=== PATIENT | male | born 1980 | race Caucasian/White ===

== ENCOUNTER 2020-10-31 09:57 | Emergency (ER) | payer OTHER ==
[~2020-10-31] VITALS: Ht 177.8 cm; Wt 89.6 kg
--- NOTE | 2020-10-31 10:12 | NUR ---
PT RECLINED IN BED, NAD NOTED AT THIS TIME. PT PRESENTS WITH URTICARIA RASH FOR MONTHS. AWAITING ORDERS AT THIS TIME.
[2020-10-31] MEDS ORDERED: FAMOTIDINE 20 MG TABLET ONE (10:19)
[2020-10-31] MEDS ORDERED: FAMOTIDINE 20 MG TABLET PO ONE (10:30)
[2020-10-31 10:46] LABS: BASOPHILS % (AUTO) 0 % (0-1); EOSINOPHILS % (AUTO) 2 % (1-7); LYMPHOCYTES % (AUTO) 14 % (22-44); MEAN CORPUSCULAR HEMOGLOBIN 32.6 pg (27.5-34.5); MEAN CORPUSCULAR HGB CONC 33.8 g/dL (33.2-36.2); MONOCYTES % (AUTO) 9 % (2-9); NEUTROPHILS % (AUTO) 76 % (42-75); PLATELET COUNT 255 x10^3/uL (130-400); RED BLOOD COUNT 5.03 x10^6/uL (4.38-5.82); RED CELL DISTRIBUTION WIDTH 13.5 % (9.4-14.8)
[2020-10-31 10:51] LABS: ALBUMIN 3.8 g/dL (3.4-5.0); ANION GAP 3 mmol/L (5-15); CALCIUM 8.8 mg/dL (8.5-10.1); CHLORIDE 109 mmol/L (98-107); CREATININE 1.33 mg/dL (0.7-1.3)
[2020-10-31 10:55] LABS: MD NO
[2020-10-31 11:45] VITALS: BP 127/80
== END 2020-10-31 11:48 | disposition home or self-care (01) ==
LOC: ED 10:40
DX: L50.9 Urticaria, unspecified (principal)
CPT/HCPCS: 36415; 80048; 82040; 85025; 99284; J7512; Q0177